=== PATIENT | female | born 1970 | race Caucasian/White ===

== ENCOUNTER 2016-10-01 09:44 | Emergency (ER) | payer OTHER ==
[2016-10-01] MEDS ORDERED: DEXAMETHASONE 10 MG/ML VIAL PO STA (10:01)
[2016-10-01] MEDS ORDERED: DEXAMETHASONE 10 MG/ML VIAL ONE (10:03)
[2016-10-01] MEDS ORDERED: CHERRY SYRUP 10 ML UDC PO ONE (10:03)
== END 2016-10-01 10:13 | disposition home or self-care (01) ==
DX: H66.003 Acute suppurative otitis media without spontaneous rupture of ear drum, bilateral (principal); H74.03 Tympanosclerosis, bilateral; J06.9 Acute upper respiratory infection, unspecified; Z79.82 Long term (current) use of aspirin
CPT/HCPCS: 99283; A9270

== ENCOUNTER 2017-03-24 15:16 | Outpatient (CLI) | payer OTHER | END 2017-03-24 15:17 | disposition home or self-care (01) | LOC: SC 15:16 | PROVIDERS: ATTEND Internal Medicine Pulmonary Disease | DX: G47.33 Obstructive sleep apnea (adult) (pediatric) (principal) | CPT/HCPCS: 99203; 99212 ==

== ENCOUNTER 2017-05-05 19:14 | Outpatient (CLI) | payer OTHER | END 2017-05-05 19:15 | disposition home or self-care (01) | LOC: SC 19:14 | PROVIDERS: ATTEND Internal Medicine Pulmonary Disease | DX: G47.33 Obstructive sleep apnea (adult) (pediatric) (principal) | CPT/HCPCS: 95811 ==

== ENCOUNTER 2017-05-22 08:51 | Outpatient (CLI) | payer OTHER | END 2017-05-22 08:52 | disposition home or self-care (01) | LOC: SC 08:51 | PROVIDERS: ATTEND Nurse Practitioner Family | DX: G47.33 Obstructive sleep apnea (adult) (pediatric) (principal); I47.1 Supraventricular tachycardia | CPT/HCPCS: 99212; 99214 ==

== ENCOUNTER 2017-06-16 17:44 | Emergency (ER) | payer OTHER ==
--- NOTE | 2017-06-16 18:22 | ED Physician Documentation ---
PD HPI ABD PAIN - Stated complaint Stated Complaint: CHEST PX - Chief complaint Chief Complaint: Cardiac - History obtained from History obtained from: Patient, Family - History of Present Illness Timing - onset: Today Timing - duration: Hours (1 1/2-2) Timing - details: Gradual onset, Still present Quality: Aching, Pain Location: Epigastric, LUQ Radiation: No: Left flank, Right flank Improved by: No: Eating, Position Worsened by: No: Eating, Position Associated symptoms: Nausea. No: Fever, Vomiting, Diarrhea, Dysuria, Chest pain , Near syncope / syncope Similar symptoms before: Has not had sx before Recently seen: Not recently seen Review of Systems Constitutional: denies: Fever, Chills Nose: denies: Rhinorrhea / runny nose, Congestion Throat: denies: Sore throat Cardiac: denies: Chest pain / pressure Respiratory: denies: Dyspnea, Cough GI: reports: Abdominal Pain. 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 HEENT: Tonsil/Adenoidectomy - Present Medications Home Medications: Ambulatory Orders Medication Instructions Recorded Confirmed Aspirin 81 mg PO DAILY 10/01/16 06/16/17 Cetirizine HCl [Zyrtec] 10 mg PO DAILY 10/01/16 06/16/17 Lisinopril 20 mg PO DAILY 10/01/16 06/16/17 Meloxicam 15 mg PO DAILY 10/01/16 06/16/17 Pantoprazole [Protonix] 40 mg PO DAILY 10/01/16 06/16/17 Sertraline HCl [Zoloft] 100 mg PO DAILY 10/01/16 06/16/17 Metformin HCl [Metformin HCl ER] 1,000 mg PO DAILY 06/16/17 06/16/17 - Allergies Allergies/Adverse Reactions: Allergies Allergy/AdvReac Type Severity Reaction Status Date / Time Penicillins Allergy Hives Verified 06/16/17 17:53 - Social History Does the pt smoke?: No Smoking Status: Never smoker Does the pt drink ETOH?: No Does the pt have substance abuse?: No - Immunizations Immunizations are current?: Yes Immunizations: TDAP >10years/unknown - POLST Patient has POLST: No PD ED PE NORMAL - Vitals Vital signs reviewed: Yes - General General: Alert and oriented X 3, No acute distress, Well developed/nourished - HEENT HEENT: Moist mucous membranes, Pharynx benign - Neck Neck: Supple, no meningeal sign, No bony TTP, No adenopathy - Cardiac Cardiac: RRR, No murmur - Respiratory Respiratory: Clear bilaterally - Abdomen Abdomen: Normal bowel sounds, Non distended, No organomegaly - Female Female : Deferred - Rectal Rectal: Deferred - Back Back: No CVA TTP - Derm Derm: Normal color, Warm and dry - Extremities Extremities: No deformity, No tenderness to palpate, Normal ROM s pain, No edema , No calf tenderness / cord - Neuro Neuro: Alert and oriented X 3, No motor deficit, Normal speech - Psych Psych: Normal mood Results - Vitals Vitals: Oxygen O2 Source Room air - Labs Labs: Laboratory Tests 06/16/17 06/16/17 06/16/17 18:20 18:20 18:20 WBC 10.8 RBC 3.96 L Hgb 11.4 L Hct 35.8 L MCV 90.5 MCH 28.7 MCHC 31.7 L RDW 14.6 Plt Count 319 MPV 7.5 L Neut # 6.0 Lymph # 3.6 H [place] # 0.9 Eos # 0.4 Baso # 0.1 Absolute Nucleated RBC 0.01 Nucleated RBC % 0.1 Sodium 137 Potassium 4.0 Chloride 101 Carbon Dioxide 27 Anion Gap 9.0 BUN 9 Creatinine 0.6 Estimated GFR (MDRD) 107 Glucose 156 H Calcium 8.7 Total Bilirubin 0.4 AST 47 H ALT 55 Alkaline Phosphatase 100 Troponin I < 0.04 B-Natriuretic Peptide Total Protein 7.4 Albumin 3.4 Globulin 4.0 Albumin/Globulin Ratio 0.9 L Lipase 28 06/16/17 18:20 WBC RBC Hgb Hct MCV MCH MCHC RDW Plt Count MPV Neut # Lymph # [place] # Eos # Baso # Absolute Nucleated RBC Nucleated RBC % Sodium Potassium Chloride Carbon Dioxide Anion Gap BUN Creatinine Estimated GFR (MDRD) Glucose Calcium Total Bilirubin AST ALT Alkaline Phosphatase Troponin I B-Natriuretic Peptide 32 Total Protein Albumin Globulin Albumin/Globulin Ratio Lipase - Rads (name of study) abd/pelvic CT Radiology: Prelim report reviewed (no acute findings. normal appendix. s/p CCY. diverticula. atelectasis in lingula. fat containing hernia. ) PD MEDICAL DECISION MAKING - ED course Complexity details: reviewed results, considered differential, d/w patient Departure - Departure Disposition: 01 Home, Self Care Clinical Impression: Abdominal pain Qualifiers: Abdominal location: left upper quadrant Qualified Code(s): R10.12 - Left upper quadrant pain Condition: Stable Record reviewed to determine appropriate education?: Yes Instructions: ED Abdominal Pain Unkn Cause Follow-Up: AKIN JAVIER [Primary Care Provider] - Comments: Your tests and EKG and CT scan appear normal here. I do not know the cause of your pain at this time. Drink lots of fluids and could use some ibuprofen or naproxen twice daily for the next few days. Add Tylenol if needed. Recheck if not improved over the next couple of days. Return sooner if other symptoms or worsening pain. The CT scan does show some diverticulosis but no signs of diverticulitis at this time. This could be early on and not evident on the scan. If increasing pain, fever, diarrhea, other symptoms then recheck her follow-up with your primary care. Discharge Date/Time: 06/16/17 21:04
[2017-06-16 18:26] LABS: BASOPHILS # (AUTO) 0.1 10^3/uL (0.0-0.1); BASOPHILS % (AUTO) 0.5 %; EOSINOPHILS # (AUTO) 0.4 10^3/uL (0.0-0.7); EOSINOPHILS % (AUTO) 3.4 %; HCT - HEMATOCRIT 35.8 % (37.0-47.0); HGB - HEMOGLOBIN 11.4 g/dL (12.0-16.0); LYMPHOCYTES # (AUTO) 3.6 10^3/uL (1.5-3.5); LYMPHOCYTES % (AUTO) 33.3 %; MEAN CORPUSCULAR HEMOGLOBIN 28.7 pg (27.0-31.0); MEAN CORPUSCULAR HGB CONC 31.7 g/dL (32.0-36.0); MEAN CORPUSCULAR VOLUME 90.5 fL (81.0-99.0); MEAN PLATELET VOLUME 7.5 fL (7.9-10.8); MONOCYTES # (AUTO) 0.9 10^3/uL (0.0-1.0); MONOCYTES % (AUTO) 7.9 %; NEUTROPHILS % (AUTO) 54.9 %; NUCLEATED RED BLOOD CELLS AUTO 0.1 /100WBC; RED BLOOD COUNT 3.96 10^6/uL (4.20-5.40); RED CELL DISTRIBUTION WIDTH 14.6 % (12.0-15.0); UNCORRECTED WHITE BLOOD COUNT 10.8 x10^3/uL; WHITE BLOOD COUNT 10.8 x10^3/uL (4.8-10.8)
--- NOTE | 2017-06-16 18:46 | XRAY Preliminary Report ---
Exam: XR CHEST 1 VIEW IMPRESSION: Mild cardiomegaly. [facility] SITE ID: [id number]
[2017-06-16 18:48] LABS: ALBUMIN/GLOBULIN RATIO 0.9 (1.0-2.2); BILIRUBIN,TOTAL 0.4 mg/dL (0.2-1.0); CALCIUM 8.7 mg/dL (8.5-10.3); CREATININE 0.6 mg/dL (0.4-1.0); TOTAL PROTEIN 7.4 g/dL (6.7-8.2)
--- NOTE | 2017-06-16 19:09 | XRAY Report ---
EXAM: CHEST RADIOGRAPHY EXAM DATE: 06/16/2017 06:11 PM. CLINICAL HISTORY: Chest pain. COMPARISON: No prior chest x-ray. CT abdomen and pelvis 01/05/2016. TECHNIQUE: 1 view. FINDINGS: Lungs/Pleura: No focal opacities evident. No pleural effusion. No pneumothorax. Mediastinum: New mild cardiomegaly. No tracheal shift. Other: None. IMPRESSION: Mild cardiomegaly. [facility] Referring Provider Line: [phone] SITE ID: [id number]
--- NOTE | 2017-06-16 20:10 | CT Preliminary Report ---
Exam: CT ABDOMEN/PELVIS W/O IMPRESSION: 1. Tiny right lower pole renal calculus measuring 2 mm. Otherwise, the kidneys appear within normal l imits. 2. Enlarged fatty liver. 3. Mild sigmoid diverticulosis without evidence for acute diverticulitis. Normal appendix. 4. Uterine fibroids. 5. Small fat-containing right posterior diaphragmatic hernia, unchanged. Minimal lingular consolidati on most likely atelectasis, new. Low mediastinal left para-aortic lymphadenopathy measuring 1.1 cm ap pears unchanged. [facility] SITE ID: [id number]
--- NOTE | 2017-06-16 20:13 | CT Report ---
EXAM: CT ABDOMEN AND PELVIS (CT KUB) EXAM DATE: 06/16/2017 07:38 PM. CLINICAL HISTORY: Left upper abdominal pain today. COMPARISONS: CT abdomen and pelvis 01/05/2016. TECHNIQUE: Routine axial helical CT imaging was performed through the abdomen and pelvis without IV c ontrast. Reconstructions: Coronal and sagittal. No oral contrast. In accordance with CT protocol optimization, one or more of the following dose reduction techniques w ere utilized for this exam: automated exposure control, adjustment of mA and/or KV based on patient s ize, or use of iterative reconstructive technique. FINDINGS: Lung Bases: Small fat-containing right posterior diaphragmatic hernia, unchanged. Minimal lingular co nsolidation most likely atelectasis, new. Low mediastinal left para-aortic lymphadenopathy measuring 1.1 cm appears unchanged. Liver: Enlarged fatty liver. Focal fatty sparing adjacent to the gallbladder. Status post cholecystectomy. No bile duct dilatation. Pancreas: Normal Spleen: Normal. Adrenals: Normal. Kidneys: Tiny right lower pole renal calculus measuring 2 mm. Otherwise, the kidneys appear within no rmal limits. No hydronephrosis. No ureteral calculi or hydroureter. No renal masses are seen. Bowel: Normal appendix. Mild sigmoid diverticulosis without evidence for acute diverticulitis. No joseline e fluid or free air. Pelvis: Uterine fibroids again noted. Bladder is decompressed. No inguinal or pelvic lymphadenopathy. No retroperitoneal lymphadenopathy. No acute bone findings. IMPRESSION: 1. Tiny right lower pole renal calculus measuring 2 mm. Otherwise, the kidneys appear within normal l imits. 2. Enlarged fatty liver. 3. Mild sigmoid diverticulosis without evidence for acute diverticulitis. Normal appendix. 4. Uterine fibroids. 5. Small fat-containing right posterior diaphragmatic hernia, unchanged. Minimal lingular consolidati on most likely atelectasis, new. Low mediastinal left para-aortic lymphadenopathy measuring 1.1 cm ap pears unchanged. [facility] Referring Provider Line: [phone] SITE ID: [id number]
[2017-06-16 20:24] VITALS: BP 135/66
== END 2017-06-16 21:04 | disposition home or self-care (01) ==
LOC: ED 17:44
DX: R10.12 Left upper quadrant pain (principal); E11.9 Type 2 diabetes mellitus without complications; I10 Essential (primary) hypertension
CPT/HCPCS: 36415; 71010; 74176; 80053; 83690; 83880; 84484; 85025; 93005; 99283; 99284

== ENCOUNTER 2017-07-08 09:20 | Outpatient (CLI) | payer OTHER | END 2017-07-08 09:21 | disposition home or self-care (01) | LOC: SC 09:20 | PROVIDERS: ATTEND Nurse Practitioner Family | DX: G47.33 Obstructive sleep apnea (adult) (pediatric) (principal) | CPT/HCPCS: 99212; 99214 ==

== ENCOUNTER 2017-08-05 15:43 | Outpatient (CLI) | payer OTHER | END 2017-08-05 15:44 | disposition home or self-care (01) | LOC: SC 15:43 | PROVIDERS: ATTEND Nurse Practitioner Family | DX: G47.33 Obstructive sleep apnea (adult) (pediatric) (principal) | CPT/HCPCS: 99212; 99214 ==

== ENCOUNTER 2017-08-27 16:13 | Outpatient (CLI) | payer OTHER | END 2017-08-27 16:14 | disposition home or self-care (01) | LOC: SC 16:13 | PROVIDERS: ATTEND Nurse Practitioner Family | DX: G47.33 Obstructive sleep apnea (adult) (pediatric) (principal) | CPT/HCPCS: 99212; 99214 ==

== ENCOUNTER 2017-11-25 08:46 | Outpatient (CLI) | payer OTHER | END 2017-11-25 08:47 | disposition home or self-care (01) | LOC: SC 08:46 | PROVIDERS: ATTEND Nurse Practitioner Family | DX: G47.33 Obstructive sleep apnea (adult) (pediatric) (principal) | CPT/HCPCS: 99212; 99214 ==

== ENCOUNTER 2020-04-10 06:18 | Day surgery (SDC) | payer OTHER ==
[2020-04-10] MEDS ORDERED: MIDAZOLAM 2 MG/2 ML VIAL IVP ONE (06:19)
[2020-04-10] MEDS ORDERED: fentaNYL 250 MCG/5 ML VIAL IVP ONE (06:19)
[2020-04-10] MEDS ORDERED: LACTATED RINGERS 1,000 ML IV ONE ×2 (07:10→08:24)
[2020-04-10 08:46] VITALS: BP 123/73
== END 2020-04-10 06:19 | disposition home or self-care (01) ==
LOC: SDS 06:18
PROVIDERS: ATTEND Internal Medicine Gastroenterology
PROC: 0DBP8ZZ Excision of Rectum, Via Natural or Artificial Opening Endoscopic (ICD-10-PCS; 2020-04-10)
PROC: 0DBN8ZZ Excision of Sigmoid Colon, Via Natural or Artificial Opening Endoscopic (ICD-10-PCS; principal; 2020-04-10 07:30)
DX: K63.5 Polyp of colon (principal); K62.1 Rectal polyp; K57.30 Diverticulosis of large intestine without perforation or abscess without bleeding; K21.9 Gastro-esophageal reflux disease without esophagitis; G47.30 Sleep apnea, unspecified; E11.9 Type 2 diabetes mellitus without complications; I10 Essential (primary) hypertension; F32.9 Major depressive disorder, single episode, unspecified; Z79.82 Long term (current) use of aspirin
CPT/HCPCS: 45380; 45385; J3010; J7120

== ENCOUNTER 2022-10-31 17:59 | Emergency (ER) | payer OTHER ==
--- NOTE | 2022-10-31 18:17 | ED Physician Documentation ---
History of Present Illness - Stated complaint Stated Complaint: CHEST TIGHTNESS - Chief complaint Chief Complaint: Cardiac - Additonal information Additional information: 52-year-old female presents to the emergency department for evaluation of palpitations and chest tightness. This has become a recurrent use event and symptoms since about a week ago. No syncope. No dyspnea. She briefly had pain in her left axilla today when her chest was tight. No nausea or vomiting. No back pain. No unilateral leg swelling. Reports that she has had palpitations for a long time and had a Holter monitor completed a number of years ago that was negative. She is obese, has type 2 diabetes as well as hypertension. She is not a smoker. Review of Systems Constitutional: denies: Fever, Chills Throat: reports: Reviewed and negative Cardiac: reports: Chest pain / pressure, Palpitations. 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 HEENT: Tonsil/Adenoidectomy - Present Medications Home Medications: Ambulatory Orders Medication Instructions Recorded Confirmed Aspirin 81 mg PO DAILY 10/01/16 06/16/17 Cetirizine HCl [Zyrtec] 10 mg PO DAILY 10/01/16 06/16/17 Lisinopril 20 mg PO DAILY 10/01/16 06/16/17 Meloxicam 15 mg PO DAILY 10/01/16 06/16/17 Pantoprazole [Protonix] 40 mg PO DAILY 10/01/16 04/10/20 Sertraline HCl [Zoloft] 100 mg PO DAILY 10/01/16 04/10/20 Metformin HCl [Metformin HCl ER] 2,000 mg PO DAILY 06/16/17 04/10/20 - Allergies Allergies/Adverse Reactions: Allergies Allergy/AdvReac Type Severity Reaction Status Date / Time pecan nut Allergy Anaphylaxis Verified 10/31/22 18:11 Penicillins Allergy Hives Verified 10/31/22 18:10 walnut Allergy Anaphylaxis Verified 10/31/22 18:11 - Social History Does the pt smoke?: No Smoking Status: Never smoker Does the pt drink ETOH?: No Does the pt have substance abuse?: No - Immunizations Immunizations are current?: Yes Immunizations: TDAP >10years/unknown - POLST Patient has POLST: No PD ED PE NORMAL - General General: Alert and oriented X 3, No acute distress. No: Well developed/nourished (Obese) - HEENT HEENT: Atraumatic, Moist mucous membranes - Neck Neck: Supple, no meningeal sign, No adenopathy - Cardiac Cardiac: RRR, No murmur, No gallop, Strong equal pulses - Respiratory Respiratory: No respiratory distress, Clear bilaterally - Abdomen Abdomen: Normal bowel sounds, Soft - Derm Derm: Normal color, Warm and dry, No rash - Extremities Extremities: No deformity, No tenderness to palpate, Normal ROM s pain - Neuro Neuro: Alert and oriented X 3 Eye Opening: Spontaneous Motor: Obeys Commands Verbal: Oriented GCS Score: 15 Results - Vitals Vitals: Vital Signs - 24 hr 10/31/22 18:00 Temperature 36.6 C Heart Rate 96 Respiratory 16 Rate Blood Pressure 169/95 H O2 Saturation 100 Oxygen O2 Source Room air - EKG (time done) 1807 EKG releavant findings:: EKG personally interpreted by author of this note. Relevant findings are: Rate: Rate (enter#) (89) Rhythm: NSR Maurice: Normal Intervals: Prolonged QT QRS: Low voltage Ischemia: Normal ST segments Compare to prior EKG: Unchanged from prior EKG Computer interpretation: Agree with computer - Labs Labs: Laboratory Tests 10/31/22 10/31/22 10/31/22 18:25 18:25 18:25 WBC 11.6 H RBC 4.09 L Hgb 10.2 L Hct 34.7 L MCV 84.8 MCH 24.9 L MCHC 29.4 L RDW 16.3 H Plt Count 397 MPV 9.3 Neut # (Auto) 7.0 H Lymph # (Auto) 3.6 H [place] # (Auto) 0.8 Eos # (Auto) 0.2 Baso # (Auto) 0.1 Absolute Nucleated RBC 0.00 Nucleated RBC % 0.0 Sodium 136 Potassium 4.1 Chloride 100 L Carbon Dioxide 27 Anion Gap 9.0 BUN 9 Creatinine 0.6 Estimated GFR (MDRD) 105 Glucose 124 H Calcium 9.2 Total Bilirubin 0.2 AST 21 ALT 21 Alkaline Phosphatase 97 Troponin I High Sens 3.6 B-Natriuretic Peptide Total Protein 7.7 Albumin 3.4 Globulin 4.3 H Albumin/Globulin Ratio 0.8 L Lipase 34 10/31/22 18:25 WBC RBC Hgb Hct MCV MCH MCHC RDW Plt Count MPV Neut # (Auto) Lymph # (Auto) [place] # (Auto) Eos # (Auto) Baso # (Auto) Absolute Nucleated RBC Nucleated RBC % Sodium Potassium Chloride Carbon Dioxide Anion Gap BUN Creatinine Estimated GFR (MDRD) Glucose Calcium Total Bilirubin AST ALT Alkaline Phosphatase Troponin I High Sens B-Natriuretic Peptide 23 Total Protein Albumin Globulin Albumin/Globulin Ratio Lipase - Rads (name of study) cxr Relevant Findings:: EMP independent interpretation of test (No acute cardiopulmonary process) PD Medical Decision Making - ED course Complexity details: reviewed results, re-evaluated patient, considered differential, d/w patient ED course: 52-year-old female who has a history of diabetes, hypertension and morbid obesity presents emergency department for evaluation of intermittent palpitations and chest tightness that she has had for much of the last week. She denies shortness of air as well as chest pain. No syncope. 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 Her screening EKG was nonischemic. Troponin was negative. We also obtained a CBC and electrolytes. Per my interpretation the patient is developing a mild anemia. Her hemoglobin today is 10.2. In contrast to a hemoglobin of over 11 a year ago. Patient reports a colonoscopy about a year ago that was negative. I have advised her to follow-up with the developing anemia with her primary care provider. May benefit from iron testing and/or reconsideration of the colonoscopy. Patient's heart score is 2 putting her at low risk for Mace. Clinically history and exam is not consistent with exertional angina. She is advised close follow- up with PCP. May benefit from outpatient echocardiogram and/or stress test. Emergent and worrisome return precautions were discussed. Departure - Departure Disposition: 01 Home, Self Care Clinical Impression: Palpitations with regular cardiac rhythm Anemia Qualifiers: Anemia type: unspecified type Qualified Code(s): D64.9 - Anemia, unspecified Condition: Stable Record reviewed to determine appropriate education?: Yes Instructions: ED Palpitations Comments: Sania benavides came to the emergency department today because you have been experiencing some palpitations at home. You have also had some vague chest tightness but no chest pain or shortness of air. Today in the emergency department you were placed on a farm equipment engine mechanic and while here your rhythm has been sinus without any PVCs or abnormal arrhythmias. We did obtain a CBC and electrolytes. You are developing a mild anemia. Your hemoglobin today is 10.2. You do take a daily aspirin. I recommend that you discuss this finding with your primary care provider. You did have colonoscopy last year. It may be worthwhile to consider a repeat colonoscopy or other testing such as iron levels. Your EKG today did not show signs of a heart attack and your labs were also negative in this regard. I would ask you to discuss this ED visit with your primary care provider. Given your age and history you should be referred for an outpatient echocardiogram and/or stress test. Return immediately to the ER if you develop any sudden severe shortness of air, have any fainting episodes, black or bloody stools or severe chest pain especially with exertion.
[2022-10-31 18:30] LABS: BASOPHILS # (AUTO) 0.1 10^3/uL (0.0-0.1); BASOPHILS % (AUTO) 0.5 %; EOSINOPHILS # (AUTO) 0.2 10^3/uL (0.0-0.7); HCT - HEMATOCRIT 34.7 % (37.0-47.0); HGB - HEMOGLOBIN 10.2 g/dL (12.0-16.0); LYMPHOCYTES # (AUTO) 3.6 10^3/uL (1.5-3.5); LYMPHOCYTES % (AUTO) 30.7 %; MEAN CORPUSCULAR HEMOGLOBIN 24.9 pg (27.0-31.0); MEAN CORPUSCULAR HGB CONC 29.4 g/dL (32.0-36.0); MEAN CORPUSCULAR VOLUME 84.8 fL (81.0-99.0); MEAN PLATELET VOLUME 9.3 fL (7.9-10.8); MONOCYTES # (AUTO) 0.8 10^3/uL (0.0-1.0); MONOCYTES % (AUTO) 6.8 %; NEUTROPHILS % (AUTO) 59.7 %; PLT - PLATELET COUNT 397 10^3/uL (130-450); RED BLOOD COUNT 4.09 10^6/uL (4.20-5.40); RED CELL DISTRIBUTION WIDTH 16.3 % (12.0-15.0); WHITE BLOOD COUNT 11.6 x10^3/uL (4.8-10.8)
[2022-10-31 18:56] LABS: ALBUMIN 3.4 g/dL (3.2-5.5); ALBUMIN/GLOBULIN RATIO 0.8 (1.0-2.2); BILIRUBIN,TOTAL 0.2 mg/dL (0.2-1.0); CALCIUM 9.2 mg/dL (8.5-10.3); CREATININE 0.6 mg/dL (0.4-1.0); POTASSIUM 4.1 mmol/L (3.5-5.0); TOTAL PROTEIN 7.7 g/dL (6.7-8.2)
[2022-10-31 19:19] VITALS: BP 133/65
--- NOTE | 2022-10-31 19:24 | XRAY Report ---
PROCEDURE: Chest 1 View X-Ray INDICATIONS: Chest Pain TECHNIQUE: One view of the chest was acquired. COMPARISON: 06/16/2017 FINDINGS: Surgical changes and devices: None. Lungs and pleura: Low lung volumes. No dense consolidation or pleural effusion. Mediastinum: Mediastinal contours appear normal. Heart size is normal. Bones and chest wall: No suspicious bony lesions. Overlying soft tissues appear unremarkable. IMPRESSION: No acute radiographic abnormality. Reviewed by: Loc Day MD on 10/31/2022 7:22 PM PST Approved by: Loc Day MD on 10/31/2022 7:22 PM PST Station ID: [id number]
== END 2022-10-31 19:20 | disposition home or self-care (01) ==
LOC: ED 17:59
DX: R00.2 Palpitations (principal); D64.9 Anemia, unspecified; Z79.82 Long term (current) use of aspirin
CPT/HCPCS: 36415; 80053; 83690; 83880; 84484; 85025; 93005; 99284

== ENCOUNTER 2023-02-02 14:34 | Emergency (ER) | payer OTHER ==
--- NOTE | 2023-02-02 15:04 | XRAY Report ---
PROCEDURE: Chest 1 View X-Ray INDICATIONS: Chest pain TECHNIQUE: One view of the chest was acquired. COMPARISON: None. FINDINGS: Surgical changes and devices: None. Lungs and pleura: No pleural effusions or pneumothorax. Lungs are clear. Mediastinum: Mediastinal contours appear normal. Heart size is normal. Bones and chest wall: No suspicious bony lesions. Overlying soft tissues appear unremarkable. IMPRESSION: No acute cardiopulmonary process. Reviewed by: Aravind Wallace MD on 02/02/2023 2:02 PM [facility] Approved by: Aravind Wallace MD on 02/02/2023 2:02 PM AKDT Station ID: [id number]
[2023-02-02 15:11] LABS: BASOPHILS # (AUTO) 0.1 10^3/uL (0.0-0.1); BASOPHILS % (AUTO) 0.5 %; EOSINOPHILS # (AUTO) 0.2 10^3/uL (0.0-0.7); EOSINOPHILS % (AUTO) 1.6 %; HCT - HEMATOCRIT 37.6 % (37.0-47.0); HGB - HEMOGLOBIN 11.5 g/dL (12.0-16.0); LYMPHOCYTES # (AUTO) 2.9 10^3/uL (1.5-3.5); LYMPHOCYTES % (AUTO) 24.2 %; MEAN CORPUSCULAR HEMOGLOBIN 27.4 pg (27.0-31.0); MEAN CORPUSCULAR HGB CONC 30.6 g/dL (32.0-36.0); MEAN CORPUSCULAR VOLUME 89.5 fL (81.0-99.0); MEAN PLATELET VOLUME 9.7 fL (7.9-10.8); MONOCYTES # (AUTO) 0.7 10^3/uL (0.0-1.0); MONOCYTES % (AUTO) 6.1 %; NEUTROPHILS % (AUTO) 67.3 %; PLT - PLATELET COUNT 326 10^3/uL (130-450); RED CELL DISTRIBUTION WIDTH 19.4 % (12.0-15.0); WHITE BLOOD COUNT 11.9 x10^3/uL (4.8-10.8)
[2023-02-02 15:34] LABS: ALBUMIN 3.6 g/dL (3.2-5.5); ALBUMIN/GLOBULIN RATIO 0.9 (1.0-2.2); BILIRUBIN,TOTAL 0.2 mg/dL (0.2-1.0); CALCIUM 9.3 mg/dL (8.5-10.3); CREATININE 0.6 mg/dL (0.4-1.0); POTASSIUM 4.1 mmol/L (3.5-5.0); TOTAL PROTEIN 7.7 g/dL (6.7-8.2)
--- OUTSIDE RECORDS SUMMARY | 2023-02-02 15:45 | EXTERNAL MEDICAL SUMMARY RPT | Continuity of Care Document ---
Author Name Unknown Address [address] [place] [address] Phone Organization [facility] Address [address] [place] [address] Phone Problems date description facility 2022-12-31 11:32 Anemia, unspecified [facility] 2022-12-31 11:47 Anemia, unspecified [facility] 2022-12-31 11:48 Anemia, unspecified [facility] 2023-01-02 14:51 Iron deficiency anemia, unspeci [facility] 2023-01-02 14:51 Anemia, unspecified [facility] Results/Labs test date author facility value unit interpretation Result panel 1 (unknown) (no date) (unknown) (unknown) (no value) (units unknown) (unknown) (unknown) (no date) (unknown) (unknown) (1) Anemia (units unknown) (unknown) (unknown) (no date) (unknown) (unknown) (VITAMIN C) (units unknown) (unknown) (unknown) (no date) (unknown) (unknown) (Vitamin D3) (units unknown) (unknown) (unknown) (no date) (unknown) (unknown) - Constitutional (un its unknown) (unknown) (unknown) (no date) (unknown) (unknown) - Consult Narrative (units unknown) (unknown) (unknown) (no date) (unknown) (unknown) - Patient Self-Reported Symptoms (units unknown) (unknown) (unknown) (no date) (unknown) (unknown) - Routine Abdo feliz Exam (units unknown) (unknown) (unknown) (no date) (unknown) (unknown) - Routine Cardiovascular Exam (units unknown) (unknown) (unknown) (no date) (unknown) (unknown) - Routine Extremities Exam (units unknown) (unknown) (unknown) (no date) (unknown) (unknown) - Routine HEENT Exam (units unknown) (unknown) (unknown) (no date) (unknown) (unknown) - Routine Neurological Exam (units unknown) (unknown) (unknown) (no date) (unknown) (unknown) - Routine Psychiatric Exam (units unknown) (unknown) (unknown) (no date) (unknown) (unknown) - Routine Respiratory Exam (units unknown) (unknown) (unknown) (no date) (unknown) (unknown) - Routine Skin Exam (units unknown) (unknown) (unknown) (no date) (unknown) (unknown) 12/30/2212/3112/31/22 (units unknown) (unknown) (unknown) (no date) (unknown) (unknown) 12/31/22 11:25 98.1 F 78 18 130/76 98 (units unknown) (unknown) (unknown) (no date) (unknown) (unknown) 12/31/22 (units unknown) (unknown) (unknown) (no date) (unknown) (unknown) 23:59 07:59 15:59 (u nits unknown) (unknown) (unknown) (no date) (unknown) (unknown) 23:59 (units unknown) (unknown) (unknown) (no date) (unknown) (unknown) [id number] (units unknown) (unknown) (unknown) (no date) (unknown) (unknown) Age/Sex: 52 / F (uni ts unknown) (unknown) (unknown) (no date) (unknown) (unknown) Allergies (units unknown) (unknown) (unknown) (no date) (unknown) (unknown) Allergy/AdvRea c Type Severity Reaction Status Date / Time (units unknown) (unknown) (unknown) (no date) (unknown) (unknown) Assessment and Plan (units unknown) (unknown) (unknown) (no date) (unknown) (unknown) CC: Chi johnson MD (units unknown) (unknown) (unknown) (no date) (unknown) (unknown) CHOLECALCIFERO L (VITAMIN D3) 2,000 iu PO Q DAY ##0 11/14/10 History (units unknown) (unknown) (unknown) (no date) (unknown) (unknown) Cardiovascular : no chest pain, no edema (units unknown) (unknown) (unknown) (no date) (unknown) (unknown) Cetirizine Hydrochloride (Zyrtec) 10 mg PO Q DAY ##0 11/14/10 History (units unknown) (unknown) (unknown) (no date) (unknown) (unknown) Constitutional : other (negative for unexpected weight change), no fever(s) (units unknown) (unknown) (unknown) (no date) (unknown) (unknown) : 9 Acct:[id number] (units unknown) (unknown) (unknown) (no date) (unknown) (unknown) Date of Servic e: 12/31/22 (units unknown) (unknown) (unknown) (no date) (unknown) (unknown) [facility] document iron deficiency with [id number] microcytic anemia. The (units unknown) (unknown) (unknown) (no date) (unknown) (unknown) ENT: Present: mucous membranes moist (units unknown) (unknown) (unknown) (no date) (unknown) (unknown) Ears, nose, mo uth, throat: no sore throat, no lump, no mass, no mouth sores (units unknown) (unknown) (unknown) (no date) (unknown) (unknown) Exam (units unknown) (unknown) (unknown) (no date) (unknown) (unknown) Eye: Present: PERRL (Conjunctivae normal) (units unknown) (unknown) (unknown) (no date) (unknown) (unknown) FERROUS GLUCON ATE (Fergon) 325 mg PO Q DAY ##0 11/14/10 History (units unknown) (unknown) (unknown) (no date) (unknown) (unknown) Gastrointestin al: other (negative for blood in stool), no abdominal pain, no (units unknown) (unknown) (unknown) (no date) (unknown) (unknown) Genitourinary: no dysuria, no hematuria (units unknown) (unknown) (unknown) (no date) (unknown) (unknown) Head: Present: normocephalic (units unknown) (unknown) (unknown) (no date) (unknown) (unknown) Hematologic/Ly mphati c: no adenopathy (units unknown) (unknown) (unknown) (no date) (unknown) (unknown) History of Pre sent Illness (units unknown) (unknown) (unknown) (no date) (unknown) (unknown) Home Medicatio ns and Allergies (units unknown) (unknown) (unknown) (no date) (unknown) (unknown) Home Medications (un its unknown) (unknown) (unknown) (no date) (unknown) (unknown) Intake and Output (u nits unknown) (unknown) (unknown) (no date) (unknown) (unknown) Integumentary: no rash, no itching (units unknown) (unknown) (unknown) (no date) (unknown) (unknown) [address] [address] (units unknown) (unknown) (unknown) (no date) (unknown) (unknown) Sania Fox is a 52 year old female (units unknown) (unknown) (unknown) (no date) (unknown) (unknown) Medication Instructions Recorded Confirmed Type (units unknown) (unknown) (unknown) (no date) (unknown) (unknown) Musculoskeleta l: no abnormal gait, no back pain, no myalgias (units unknown) (unknown) (unknown) (no date) (unknown) (unknown) Narrative: (units unknown) (unknown) (unknown) (no date) (unknown) (unknown) Neurological: no abnormal gait, no dizziness, no headache(s) (units unknown) (unknown) (unknown) (no date) (unknown) (unknown) Oncology Consult (un its unknown) (unknown) (unknown) (no date) (unknown) (unknown) Other: (units unknown) (unknown) (unknown) (no date) (unknown) (unknown) PANTOPRAZOLE S ODIUM (Protonix) 40 mg PO Q DAY ##0 11/14/10 History (units unknown) (unknown) (unknown) (no date) (unknown) (unknown) POTASSIUM CHLO RIDE (K-Dur) 20 meq PO EVERY OTHER DAY ##0 11/14/10 History (units unknown) (unknown) (unknown) (no date) (unknown) (unknown) Patient Weight (unit s unknown) (unknown) (unknown) (no date) (unknown) (unknown) Patient: Sania Zimmerman MR#: [id number] (units unknown) (unknown) (unknown) (no date) (unknown) (unknown) Penicillins Al lergy Unknown Verified 12/31/22 11:31 (units unknown) (unknown) (unknown) (no date) (unknown) (unknown) Present: Clear to auscultation bilaterally. Absent: rales, respiratory (units unknown) (unknown) (unknown) (no date) (unknown) (unknown) Present: RRR. Absent: murmur, irregular rhythm (units unknown) (unknown) (unknown) (no date) (unknown) (unknown) Present: alert , oriented X3. Absent: sensory deficit, motor deficit (units unknown) (unknown) (unknown) (no date) (unknown) (unknown) Present: dry, warm. Absent: lesions (No Bruising), jaundice (units unknown) (unknown) (unknown) (no date) (unknown) (unknown) Present: full ROM. Absent: edema, tenderness (No Swelling) (units unknown) (unknown) (unknown) (no date) (unknown) (unknown) Present: keenan l affect, normal thought process, cooperative. Absent: anxious, (units unknown) (unknown) (unknown) (no date) (unknown) (unknown) Present: soft. Absent: tenderness, distended, guarding (units unknown) (unknown) (unknown) (no date) (unknown) (unknown) Provider: Chi Norman MD (units unknown) (unknown) (unknown) (no date) (unknown) (unknown) Psychiatric: o ther (negative for decreased concentration), no anxiety (units unknown) (unknown) (unknown) (no date) (unknown) (unknown) Reason for con sult: Anemia (units unknown) (unknown) (unknown) (no date) (unknown) (unknown) Referred for evaluation of anemia. The patient report reports that she has had (units unknown) (unknown) (unknown) (no date) (unknown) (unknown) Respiratory: n o shortness of breath, no cough (units unknown) (unknown) (unknown) (no date) (unknown) (unknown) Review of Systems (u nits unknown) (unknown) (unknown) (no date) (unknown) (unknown) SR Cardiovascu lar issues: Palpitations (units unknown) (unknown) (unknown) (no date) (unknown) (unknown) SR Constitutio n: Weight loss/gain, Fatigue/Malaise (units unknown) (unknown) (unknown) (no date) (unknown) (unknown) SR Endocrine i ssues: Heat intolerance (units unknown) (unknown) (unknown) (no date) (unknown) (unknown) SR Genitourina ry issues: Change in stream (units unknown) (unknown) (unknown) (no date) (unknown) (unknown) SR Skin issues : Dry skin, Hair loss or scalp prob (units unknown) (unknown) (unknown) (no date) (unknown) (unknown) SR ears, nose, mouth, throat issues: Ears ringing, Hoarseness (units unknown) (unknown) (unknown) (no date) (unknown) (unknown) Sertraline Hydrochloride (Zoloft) 150 mg PO Q DAY ##0 11/14/10 History (units unknown) (unknown) (unknown) (no date) (unknown) (unknown) Signed By: (units unknown) (unknown) (unknown) (no date) (unknown) (unknown) Status: Acute (units unknown) (unknown) (unknown) (no date) (unknown) (unknown) Temp Pulse Res p BP Pulse Ox (units unknown) (unknown) (unknown) (no date) (unknown) (unknown) This is a very pleasant 52-year-old female referred for evaluation of microcytic (units unknown) (unknown) (unknown) (no date) (unknown) (unknown) VITAMIN C - 1, 000 mg PO Q DAY ##0 11/14/10 History (units unknown) (unknown) (unknown) (no date) (unknown) (unknown) Vital Signs (units unknown) (unknown) (unknown) (no date) (unknown) (unknown) Vital signs: (units unknown) (unknown) (unknown) (no date) (unknown) (unknown) Weight 130.1 kg (uni ts unknown) (unknown) (unknown) (no date) (unknown) (unknown) [MILK THISTLE] Q DAY ##0 11/14/10 History (units unknown) (unknown) (unknown) (no date) (unknown) (unknown) agitated (units unknown) (unknown) (unknown) (no date) (unknown) (unknown) anemia. She is a history of heavy menses that have become irregular and (units unknown) (unknown) (unknown) (no date) (unknown) (unknown) aspirin 81 mg tablet mg PO 12/31/22 History (units unknown) (unknown) (unknown) (no date) (unknown) (unknown) back in 6-8 we eks to review response to treatment. The patient is agreeable to (units unknown) (unknown) (unknown) (no date) (unknown) (unknown) denies any david rry blood blood in her stools, easy bruising or easy bleeding (units unknown) (unknown) (unknown) (no date) (unknown) (unknown) diarrhea (units unknown) (unknown) (unknown) (no date) (unknown) (unknown) distress, wheezes (u nits unknown) (unknown) (unknown) (no date) (unknown) (unknown) fatigue, palpitations and uterine bleeding worsening over the last several (units unknown) (unknown) (unknown) (no date) (unknown) (unknown) has been refer red to a surgeon for this. I suspect her microcytic anemia is (units unknown) (unknown) (unknown) (no date) (unknown) (unknown) her on 2 doses of intravenous iron Feraheme to normalize her iron stores. She (units unknown) (unknown) (unknown) (no date) (unknown) (unknown) hypertension b ut denies any history of cardiovascular disease or CVA. She (units unknown) (unknown) (unknown) (no date) (unknown) (unknown) is scheduled f or colonoscopy and has had a vaginal exam. Recent laboratories (units unknown) (unknown) (unknown) (no date) (unknown) (unknown) is unable to tolerate oral iron citing constipation. I will plan to see her (units unknown) (unknown) (unknown) (no date) (unknown) (unknown) lisinopril 10 mg tablet 10 mg PO DAILY 12/31/22 12/31/22 History (units unknown) (unknown) (unknown) (no date) (unknown) (unknown) metformin 1,00 0 mg tablet 1,000 mg PO BID 12/31/22 12/31/22 History (units unknown) (unknown) (unknown) (no date) (unknown) (unknown) months. She knutson s been trying to take oral iron however has been unable to (units unknown) (unknown) (unknown) (no date) (unknown) (unknown) nut - unspecif ied AdvReac Unknown ITCHING Verified 12/31/22 11:31 (units unknown) (unknown) (unknown) (no date) (unknown) (unknown) otherwise. (units unknown) (unknown) (unknown) (no date) (unknown) (unknown) patient chris chávez has no other complaints. She does have type 2 diabetes and (units unknown) (unknown) (unknown) (no date) (unknown) (unknown) positive no ac crow distress, negative diaphoretic (units unknown) (unknown) (unknown) (no date) (unknown) (unknown) related to iro n deficiency and her irregular menses. I will go ahead and start (units unknown) (unknown) (unknown) (no date) (unknown) (unknown) somewhat heavy in nature recently. She is planning on having a hysterectomy and (units unknown) (unknown) (unknown) (no date) (unknown) (unknown) this plan. (units unknown) (unknown) (unknown) (no date) (unknown) (unknown) tolerate this. She describes her menses as irregular and heavy at times. She (units unknown) (unknown) Result panel 2 (unknown) (no date) (unknown) (unknown) (no value) (units unknown) 52877-5 (unknown) (no date) (unknown) (unknown) (no value) (units unknown) (unknown) (unknown) (no date) (unknown) (unknown) . (units unknown) (unknown) (unknown) (no date) (unknown) (unknown) . (units unknown) 89088-8 (unknown) (no date) (unknown) (unknown) 0.3 g/dl (unknown ) (unknown) (no date) (unknown) (unknown) 0.3 g/dl 2865-4 (unknown) (no date) (unknown) (unknown) 0.8 (units unknown) (unknown) (unknown) (no date) (unknown) (unknown) 0.8 (units unknown) 1759-0 (unknown) (no date) (unknown) (unknown) 1.1 g/dl (unknown ) (unknown) (no date) (unknown) (unknown) 1.1 g/dl 2868-8 (unknown) (no date) (unknown) (unknown) 1.3 g/dl (unknown ) (unknown) (no date) (unknown) (unknown) 1.3 g/dl 2871-2 (unknown) (no date) (unknown) (unknown) 1.6 g/dl (unknown ) (unknown) (no date) (unknown) (unknown) 1.6 g/dl 2874-6 (unknown) (no date) (unknown) (unknown) 3.6 g/dl (unknown ) (unknown) (no date) (unknown) (unknown) 3.6 g/dl 2862-1 (unknown) (no date) (unknown) (unknown) 4.3 g/dl (unknown ) (unknown) (no date) (unknown) (unknown) 4.3 g/dl 11454-3 (unknown) (no date) (unknown) (unknown) 7.9 g/dl (unknown ) (unknown) (no date) (unknown) (unknown) 7.9 g/dl 2885-2 (unknown) (no date) (unknown) (unknown) Not Observed g/dl (un known) (unknown) (no date) (unknown) (unknown) Not Observed g/dl 333 58-3 Result panel 3 (unknown) (no date) (unknown) (unknown) 0.8 % (unknown ) (unknown) (no date) (unknown) (unknown) 1.8 % (unknown ) (unknown) (no date) (unknown) (unknown) 10.4 g/dl (unknown ) (unknown) (no date) (unknown) (unknown) 100 /ul (unknown ) (unknown) (no date) (unknown) (unknown) 11.0 x10 3/ul (unknow n) (unknown) (no date) (unknown) (unknown) 16.2 % (unknown ) (unknown) (no date) (unknown) (unknown) 200 /ul (unknown ) (unknown) (no date) (unknown) (unknown) 25.3 pg (unknown ) (unknown) (no date) (unknown) (unknown) 30.4 % (unknown ) (unknown) (no date) (unknown) (unknown) 32.0 % (unknown ) (unknown) (no date) (unknown) (unknown) 32.6 % (unknown ) (unknown) (no date) (unknown) (unknown) 3400 /ul (unknown ) (unknown) (no date) (unknown) (unknown) 4.13 x10 6/ul (unknow n) (unknown) (no date) (unknown) (unknown) 488 x10 3/ul (unknow n) (unknown) (no date) (unknown) (unknown) 6.9 % (unknown ) (unknown) (no date) (unknown) (unknown) 60.1 % (unknown ) (unknown) (no date) (unknown) (unknown) 6600 /ul (unknown ) (unknown) (no date) (unknown) (unknown) 79.0 fl (unknown ) (unknown) (no date) (unknown) (unknown) 800 /ul (unknown ) Result panel 4 (unknown) (no date) (unknown) (unknown) 43 ug/dl (unknown ) Result panel 5 (unknown) (no date) (unknown) (unknown) > 60 ml/min (unknown ) (unknown) (no date) (unknown) (unknown) > 60 ml/min (unknown ) (unknown) (no date) (unknown) (unknown) 0.3 mg/dl (unknown ) (unknown) (no date) (unknown) (unknown) 0.55 mg/dl (unknown ) (unknown) (no date) (unknown) (unknown) 1.1 (units unknown) (unknown) (unknown) (no date) (unknown) (unknown) 10 mg/dl (unknown ) (unknown) (no date) (unknown) (unknown) 105 mmol/l (unknown ) (unknown) (no date) (unknown) (unknown) 130 u/l (unknown ) (unknown) (no date) (unknown) (unknown) 139 mmol/l (unknown ) (unknown) (no date) (unknown) (unknown) 18.2 (units unknown) (unknown) (unknown) (no date) (unknown) (unknown) 188 u/l (unknown ) (unknown) (no date) (unknown) (unknown) 188 u/l (unknown ) (unknown) (no date) (unknown) (unknown) 27 mmol/l (unknown ) (unknown) (no date) (unknown) (unknown) 3.8 g/dl (unknown ) (unknown) (no date) (unknown) (unknown) 30 iu/l (unknown ) (unknown) (no date) (unknown) (unknown) 31 iu/l (unknown ) (unknown) (no date) (unknown) (unknown) 4.1 g/dl (unknown ) (unknown) (no date) (unknown) (unknown) 4.5 mmol/l (unknown ) (unknown) (no date) (unknown) (unknown) 7.9 g/dl (unknown ) (unknown) (no date) (unknown) (unknown) 84 mg/dl (unknown ) (unknown) (no date) (unknown) (unknown) 84 mg/dl (unknown ) (unknown) (no date) (unknown) (unknown) 9.2 mg/dl (unknown ) Result panel 6 (unknown) (no date) (unknown) (unknown) 356 mg/dl (unknown ) (unknown) (no date) (unknown) (unknown) 43 ug/dl (unknown ) (unknown) (no date) (unknown) (unknown) 468 ug/dl (unknown ) (unknown) (no date) (unknown) (unknown) 9 % (unknown ) Result panel 7 (unknown) (no date) (unknown) (unknown) > 60 ml/min (unknown ) (unknown) (no date) (unknown) (unknown) > 60 ml/min (unknown ) (unknown) (no date) (unknown) (unknown) 0.3 mg/dl (unknown ) (unknown) (no date) (unknown) (unknown) 0.55 mg/dl (unknown ) (unknown) (no date) (unknown) (unknown) 1.1 (units unknown) (unknown) (unknown) (no date) (unknown) (unknown) 10 mg/dl (unknown ) (unknown) (no date) (unknown) (unknown) 10 ng/ml (unknown ) (unknown) (no date) (unknown) (unknown) 105 mmol/l (unknown ) (unknown) (no date) (unknown) (unknown) 130 u/l (unknown ) (unknown) (no date) (unknown) (unknown) 139 mmol/l (unknown ) (unknown) (no date) (unknown) (unknown) 18.2 (units unknown) (unknown) (unknown) (no date) (unknown) (unknown) 188 u/l (unknown ) (unknown) (no date) (unknown) (unknown) 188 u/l (unknown ) (unknown) (no date) (unknown) (unknown) 27 mmol/l (unknown ) (unknown) (no date) (unknown) (unknown) 3.8 g/dl (unknown ) (unknown) (no date) (unknown) (unknown) 30 iu/l (unknown ) (unknown) (no date) (unknown) (unknown) 31 iu/l (unknown ) (unknown) (no date) (unknown) (unknown) 4.1 g/dl (unknown ) (unknown) (no date) (unknown) (unknown) 4.5 mmol/l (unknown ) (unknown) (no date) (unknown) (unknown) 7.9 g/dl (unknown ) (unknown) (no date) (unknown) (unknown) 84 mg/dl (unknown ) (unknown) (no date) (unknown) (unknown) 84 mg/dl (unknown ) (unknown) (no date) (unknown) (unknown) 9.2 mg/dl (unknown ) Result panel 8 (unknown) (no date) (unknown) (unknown) > 60 ml/min (unknown ) (unknown) (no date) (unknown) (unknown) > 60 ml/min (unknown ) (unknown) (no date) (unknown) (unknown) 0.3 mg/dl (unknown ) (unknown) (no date) (unknown) (unknown) 0.55 mg/dl (unknown ) (unknown) (no date) (unknown) (unknown) 1.1 (units unknown) (unknown) (unknown) (no date) (unknown) (unknown) 10 mg/dl (unknown ) (unknown) (no date) (unknown) (unknown) 10 ng/ml (unknown ) (unknown) (no date) (unknown) (unknown) 105 mmol/l (unknown ) (unknown) (no date) (unknown) (unknown) 11.3 ng/ml (unknown ) (unknown) (no date) (unknown) (unknown) 130 u/l (unknown ) (unknown) (no date) (unknown) (unknown) 139 mmol/l (unknown ) (unknown) (no date) (unknown) (unknown) 18.2 (units unknown) (unknown) (unknown) (no date) (unknown) (unknown) 188 u/l (unknown ) (unknown) (no date) (unknown) (unknown) 188 u/l (unknown ) (unknown) (no date) (unknown) (unknown) 27 mmol/l (unknown ) (unknown) (no date) (unknown) (unknown) 3.8 g/dl (unknown ) (unknown) (no date) (unknown) (unknown) 30 iu/l (unknown ) (unknown) (no date) (unknown) (unknown) 31 iu/l (unknown ) (unknown) (no date) (unknown) (unknown) 4.1 g/dl (unknown ) (unknown) (no date) (unknown) (unknown) 4.5 mmol/l (unknown ) (unknown) (no date) (unknown) (unknown) 7.9 g/dl (unknown ) (unknown) (no date) (unknown) (unknown) 801 pg/ml (unknown ) (unknown) (no date) (unknown) (unknown) 84 mg/dl (unknown ) (unknown) (no date) (unknown) (unknown) 84 mg/dl (unknown ) (unknown) (no date) (unknown) (unknown) 9.2 mg/dl (unknown ) Result panel 9 (unknown) (no date) (unknown) (unknown) (no value) (units unknown) (unknown) (unknown) (no date) (unknown) (unknown) (1) Anemia (units unknown) (unknown) (unknown) (no date) (unknown) (unknown) (VITAMIN C) (units unknown) (unknown) (unknown) (no date) (unknown) (unknown) (Vitamin D3) (units unknown) (unknown) (unknown) (no date) (unknown) (unknown) - Constitutional (un its unknown) (unknown) (unknown) (no date) (unknown) (unknown) - Consult Narrative (units unknown) (unknown) (unknown) (no date) (unknown) (unknown) - Patient Self-Reported Symptoms (units unknown) (unknown) (unknown) (no date) (unknown) (unknown) - Routine Abdo feliz Exam (units unknown) (unknown) (unknown) (no date) (unknown) (unknown) - Routine Cardiovascular Exam (units unknown) (unknown) (unknown) (no date) (unknown) (unknown) - Routine Extremities Exam (units unknown) (unknown) (unknown) (no date) (unknown) (unknown) - Routine HEENT Exam (units unknown) (unknown) (unknown) (no date) (unknown) (unknown) - Routine Neurological Exam (units unknown) (unknown) (unknown) (no date) (unknown) (unknown) - Routine Psychiatric Exam (units unknown) (unknown) (unknown) (no date) (unknown) (unknown) - Routine Respiratory Exam (units unknown) (unknown) (unknown) (no date) (unknown) (unknown) - Routine Skin Exam (units unknown) (unknown) (unknown) (no date) (unknown) (unknown) 12/30/2212/3112/31/22 (units unknown) (unknown) (unknown) (no date) (unknown) (unknown) 12/31/22 11:25 98.1 F 78 18 130/76 98 (units unknown) (unknown) (unknown) (no date) (unknown) (unknown) 12/31/22 1538 (units unknown) (unknown) (unknown) (no date) (unknown) (unknown) 12/31/22 (units unknown) (unknown) (unknown) (no date) (unknown) (unknown) 23:59 07:59 15:59 (u nits unknown) (unknown) (unknown) (no date) (unknown) (unknown) 23:59 (units unknown) (unknown) (unknown) (no date) (unknown) (unknown) [address] (units unknown) (unknown) (unknown) (no date) (unknown) (unknown) Age/Sex: 52 / F (uni ts unknown) (unknown) (unknown) (no date) (unknown) (unknown) Allergies (units unknown) (unknown) (unknown) (no date) (unknown) (unknown) Allergy/AdvRea c Type Severity Reaction Status Date / Time (units unknown) (unknown) (unknown) (no date) (unknown) (unknown) Assessment and Plan (units unknown) (unknown) (unknown) (no date) (unknown) (unknown) CC: Chi johnson MD (units unknown) (unknown) (unknown) (no date) (unknown) (unknown) CHOLECALCIFERO L (VITAMIN D3) 2,000 iu PO Q DAY ##0 11/14/10 History (units unknown) (unknown) (unknown) (no date) (unknown) (unknown) Cardiovascular : no chest pain, no edema (units unknown) (unknown) (unknown) (no date) (unknown) (unknown) Cetirizine Hydrochloride (Zyrtec) 10 mg PO Q DAY ##0 11/14/10 History (units unknown) (unknown) (unknown) (no date) (unknown) (unknown) Constitutional : other (negative for unexpected weight change), no fever(s) (units unknown) (unknown) (unknown) (no date) (unknown) (unknown) : 9 Acct:[id number] (units unknown) (unknown) (unknown) (no date) (unknown) (unknown) Date of Servic e: 12/31/22 (units unknown) (unknown) (unknown) (no date) (unknown) (unknown) [facility] document iron deficiency with zopr-as-gqutadad microcytic anemia. The (units unknown) (unknown) (unknown) (no date) (unknown) (unknown) ENT: Present: mucous membranes moist (units unknown) (unknown) (unknown) (no date) (unknown) (unknown) Ears, nose, mo uth, throat: no sore throat, no lump, no mass, no mouth sores (units unknown) (unknown) (unknown) (no date) (unknown) (unknown) Exam (units unknown) (unknown) (unknown) (no date) (unknown) (unknown) Eye: Present: PERRL (Conjunctivae normal) (units unknown) (unknown) (unknown) (no date) (unknown) (unknown) FERROUS GLUCON ATE (Fergon) 325 mg PO Q DAY ##0 11/14/10 History (units unknown) (unknown) (unknown) (no date) (unknown) (unknown) Gastrointestin al: other (negative for blood in stool), no abdominal pain, no (units unknown) (unknown) (unknown) (no date) (unknown) (unknown) Genitourinary: no dysuria, no hematuria (units unknown) (unknown) (unknown) (no date) (unknown) (unknown) Head: Present: normocephalic (units unknown) (unknown) (unknown) (no date) (unknown) (unknown) Hematologic/Ly mphati c: no adenopathy (units unknown) (unknown) (unknown) (no date) (unknown) (unknown) History of Pre sent Illness (units unknown) (unknown) (unknown) (no date) (unknown) (unknown) Home Medicatio ns and Allergies (units unknown) (unknown) (unknown) (no date) (unknown) (unknown) Home Medications (un its unknown) (unknown) (unknown) (no date) (unknown) (unknown) Intake and Output (u nits unknown) (unknown) (unknown) (no date) (unknown) (unknown) Integumentary: no rash, no itching (units unknown) (unknown) (unknown) (no date) (unknown) (unknown) [address] [address] (units unknown) (unknown) (unknown) (no date) (unknown) (unknown) Sania Fox is a 52 year old female (units unknown) (unknown) (unknown) (no date) (unknown) (unknown) Medication Instructions Recorded Confirmed Type (units unknown) (unknown) (unknown) (no date) (unknown) (unknown) Musculoskeleta l: no abnormal gait, no back pain, no myalgias (units unknown) (unknown) (unknown) (no date) (unknown) (unknown) Narrative: (units unknown) (unknown) (unknown) (no date) (unknown) (unknown) Neurological: no abnormal gait, no dizziness, no headache(s) (units unknown) (unknown) (unknown) (no date) (unknown) (unknown) Oncology Consult (un its unknown) (unknown) (unknown) (no date) (unknown) (unknown) Other: (units unknown) (unknown) (unknown) (no date) (unknown) (unknown) PANTOPRAZOLE S ODIUM (Protonix) 40 mg PO Q DAY ##0 11/14/10 History (units unknown) (unknown) (unknown) (no date) (unknown) (unknown) POTASSIUM CHLO RIDE (K-Dur) 20 meq PO EVERY OTHER DAY ##0 11/14/10 History (units unknown) (unknown) (unknown) (no date) (unknown) (unknown) Patient Weight (unit s unknown) (unknown) (unknown) (no date) (unknown) (unknown) Patient: Sania Zimmerman MR#: [id number] (units unknown) (unknown) (unknown) (no date) (unknown) (unknown) Penicillins Al lergy Unknown Verified 12/31/22 11:31 (units unknown) (unknown) (unknown) (no date) (unknown) (unknown) Present: Clear to auscultation bilaterally. Absent: rales, respiratory (units unknown) (unknown) (unknown) (no date) (unknown) (unknown) Present: RRR. Absent: murmur, irregular rhythm (units unknown) (unknown) (unknown) (no date) (unknown) (unknown) Present: alert , oriented X3. Absent: sensory deficit, motor deficit (units unknown) (unknown) (unknown) (no date) (unknown) (unknown) Present: dry, warm. Absent: lesions (No Bruising), jaundice (units unknown) (unknown) (unknown) (no date) (unknown) (unknown) Present: full ROM. Absent: edema, tenderness (No Swelling) (units unknown) (unknown) (unknown) (no date) (unknown) (unknown) Present: keenan l affect, normal thought process, cooperative. Absent: anxious, (units unknown) (unknown) (unknown) (no date) (unknown) (unknown) Present: soft. Absent: tenderness, distended, guarding (units unknown) (unknown) (unknown) (no date) (unknown) (unknown) Provider: Chi Norman MD (units unknown) (unknown) (unknown) (no date) (unknown) (unknown) Psychiatric: o ther (negative for decreased concentration), no anxiety (units unknown) (unknown) (unknown) (no date) (unknown) (unknown) Reason for con sult: Anemia (units unknown) (unknown) (unknown) (no date) (unknown) (unknown) Referred for evaluation of anemia. The patient report reports that she has had (units unknown) (unknown) (unknown) (no date) (unknown) (unknown) Respiratory: n o shortness of breath, no cough (units unknown) (unknown) (unknown) (no date) (unknown) (unknown) Review of Systems (u nits unknown) (unknown) (unknown) (no date) (unknown) (unknown) SR Cardiovascu lar issues: Palpitations (units unknown) (unknown) (unknown) (no date) (unknown) (unknown) SR Constitutio n: Weight loss/gain, Fatigue/Malaise (units unknown) (unknown) (unknown) (no date) (unknown) (unknown) SR Endocrine i ssues: Heat intolerance (units unknown) (unknown) (unknown) (no date) (unknown) (unknown) SR Genitourina ry issues: Change in stream (units unknown) (unknown) (unknown) (no date) (unknown) (unknown) SR Skin issues : Dry skin, Hair loss or scalp prob (units unknown) (unknown) (unknown) (no date) (unknown) (unknown) SR ears, nose, mouth, throat issues: Ears ringing, Hoarseness (units unknown) (unknown) (unknown) (no date) (unknown) (unknown) Sertraline Hydrochloride (Zoloft) 150 mg PO Q DAY ##0 11/14/10 History (units unknown) (unknown) (unknown) (no date) (unknown) (unknown) Signed By:<Electronically signed by Chi Norman MD> (units unknown) (unknown) (unknown) (no date) (unknown) (unknown) Status: Acute (units unknown) (unknown) (unknown) (no date) (unknown) (unknown) Temp Pulse Res p BP Pulse Ox (units unknown) (unknown) (unknown) (no date) (unknown) (unknown) This is a very pleasant 52-year-old female referred for evaluation of microcytic (units unknown) (unknown) (unknown) (no date) (unknown) (unknown) VITAMIN C - 1, 000 mg PO Q DAY ##0 11/14/10 History (units unknown) (unknown) (unknown) (no date) (unknown) (unknown) Vital Signs (units unknown) (unknown) (unknown) (no date) (unknown) (unknown) Vital signs: (units unknown) (unknown) (unknown) (no date) (unknown) (unknown) Weight 130.1 kg (uni ts unknown) (unknown) (unknown) (no date) (unknown) (unknown) [MILK THISTLE] Q DAY ##0 11/14/10 History (units unknown) (unknown) (unknown) (no date) (unknown) (unknown) agitated (units unknown) (unknown) (unknown) (no date) (unknown) (unknown) anemia. She is a history of heavy menses that have become irregular and (units unknown) (unknown) (unknown) (no date) (unknown) (unknown) aspirin 81 mg tablet mg PO 12/31/22 History (units unknown) (unknown) (unknown) (no date) (unknown) (unknown) back in 6-8 we eks to review response to treatment. The patient is agreeable to (units unknown) (unknown) (unknown) (no date) (unknown) (unknown) denies any david rry blood blood in her stools, easy bruising or easy bleeding (units unknown) (unknown) (unknown) (no date) (unknown) (unknown) diarrhea (units unknown) (unknown) (unknown) (no date) (unknown) (unknown) distress, wheezes (u nits unknown) (unknown) (unknown) (no date) (unknown) (unknown) fatigue, palpitations and uterine bleeding worsening over the last several (units unknown) (unknown) (unknown) (no date) (unknown) (unknown) has been refer red to a surgeon for this. I suspect her microcytic anemia is (units unknown) (unknown) (unknown) (no date) (unknown) (unknown) her on 2 doses of intravenous iron Feraheme to normalize her iron stores. She (units unknown) (unknown) (unknown) (no date) (unknown) (unknown) hypertension b ut denies any history of cardiovascular disease or CVA. She (units unknown) (unknown) (unknown) (no date) (unknown) (unknown) is scheduled f or colonoscopy and has had a vaginal exam. Recent laboratories (units unknown) (unknown) (unknown) (no date) (unknown) (unknown) is unable to tolerate oral iron citing constipation. I will plan to see her (units unknown) (unknown) (unknown) (no date) (unknown) (unknown) lisinopril 10 mg tablet 10 mg PO DAILY 12/31/22 12/31/22 History (units unknown) (unknown) (unknown) (no date) (unknown) (unknown) metformin 1,00 0 mg tablet 1,000 mg PO BID 12/31/22 12/31/22 History (units unknown) (unknown) (unknown) (no date) (unknown) (unknown) months. She knutson s been trying to take oral iron however has been unable to (units unknown) (unknown) (unknown) (no date) (unknown) (unknown) nut - unspecif ied AdvReac Unknown ITCHING Verified 12/31/22 11:31 (units unknown) (unknown) (unknown) (no date) (unknown) (unknown) otherwise. (units unknown) (unknown) (unknown) (no date) (unknown) (unknown) patient othergerald chávez has no other complaints. She does have type 2 diabetes and (units unknown) (unknown) (unknown) (no date) (unknown) (unknown) positive no ac crow distress, negative diaphoretic (units unknown) (unknown) (unknown) (no date) (unknown) (unknown) related to iro n deficiency and her irregular menses. I will go ahead and start (units unknown) (unknown) (unknown) (no date) (unknown) (unknown) somewhat heavy in nature recently. She is planning on having a hysterectomy and (units unknown) (unknown) (unknown) (no date) (unknown) (unknown) this plan. (units unknown) (unknown) (unknown) (no date) (unknown) (unknown) tolerate this. She describes her menses as irregular and heavy at times. She (units unknown) (unknown) Result panel 10 (unknown) (no date) (unknown) (unknown) 0.3 g/dl (unknown ) (unknown) (no date) (unknown) (unknown) 0.8 (units unknown) (unknown) (unknown) (no date) (unknown) (unknown) 1.1 g/dl (unknown ) (unknown) (no date) (unknown) (unknown) 1.3 g/dl (unknown ) (unknown) (no date) (unknown) (unknown) 1.6 g/dl (unknown ) (unknown) (no date) (unknown) (unknown) 3.6 g/dl (unknown ) (unknown) (no date) (unknown) (unknown) 4.3 g/dl (unknown ) (unknown) (no date) (unknown) (unknown) 7.9 g/dl (unknown ) (unknown) (no date) (unknown) (unknown) Comment (units unknown) (unknown) (unknown) (no date) (unknown) (unknown) Comment (units unknown) (unknown) (unknown) (no date) (unknown) (unknown) Not Observed g/dl (un known)
--- NOTE | 2023-02-02 16:27 | ED Physician Documentation ---
PD HPI CHEST PAIN - Stated complaint Stated Complaint: CHEST PX - Chief complaint Chief Complaint: Cardiac - History obtained from History obtained from: Patient, Family - History of Present Illness Timing - onset: How many days ago (5) Timing - onset during: Rest Timing - duration: Days (5) Timing - details: Abrupt onset, Still present Quality: Pressure, Tightness Location: Substernal Radiation: No: Jaw, Neck, Back, Abdominal, Left upper extremity, Right upper extremity Improved by: Other (pressure against the chest) Worsened by: Inspiration Associated symptoms: No: Shortness of air, Diaphoresis, Nausea, Vomiting, Feeling faint / dizzy, General Weakness, Palpitations, Cough Similar symptoms before: No diagnosis Recently seen: Clinic, Emergency Dept - Additional information Additional information: 52-year-old Sania Fox is a sedentary female with a BMI of 48.9 who has recent ly been into the emergency department for palpitations and she has been in to see the assistant federal public defender and currently has an event patch on. She indicates that she is not feeling the palpitations as much as she normally has been but she has developed some pressure in her substernal area and this seems to be better if she puts her hand over it and puts a slight amount of pressure over it. She has had some worsening of this with a deep breath. She indicates that up 1 to 3 days before this started up that she had to walk across the parking lot at [facility] and may be walked about 100 yards. She indicates that she was short of breath following that and she does not usually walk that far. Review of Systems Constitutional: denies: Fever Ears: denies: Ear pain Nose: denies: Rhinorrhea / runny nose, Congestion Throat: denies: Sore throat Cardiac: reports: Chest pain / pressure, Palpitations. denies: Pedal edema, Calf pain Respiratory: denies: Dyspnea, Cough GI: denies: Abdominal Pain, Nausea, Vomiting, Constipation, Diarrhea : denies: Dysuria Skin: denies: Rash Musculoskeletal: denies: Neck pain, Back pain, Extremity pain PD PAST MEDICAL HISTORY - Past Medical History Cardiovascular: Hypertension Endocrine/Autoimmune: Type 2 diabetes GI: GERD Psych: Depression Musculoskeletal: Chronic back pain - Past Surgical History General: Cholecystectomy, EGD /[employer]ACHINE [employer]PER[employer]: Endometrial ablation HEENT: Tonsil/Adenoidectomy - Present Medications Home Medications: Ambulatory Orders Medication Instructions Recorded Confirmed Aspirin 81 mg PO DAILY 10/01/16 06/16/17 Cetirizine HCl [Zyrtec] 10 mg PO DAILY 10/01/16 06/16/17 Lisinopril 20 mg PO DAILY 10/01/16 06/16/17 Meloxicam 15 mg PO DAILY 10/01/16 06/16/17 Pantoprazole [Protonix] 40 mg PO DAILY 10/01/16 04/10/20 Sertraline HCl [Zoloft] 100 mg PO DAILY 10/01/16 04/10/20 Metformin HCl [Metformin HCl ER] 2,000 mg PO DAILY 06/16/17 04/10/20 - Allergies Allergies/Adverse Reactions: Allergies Allergy/AdvReac Type Severity Reaction Status Date / Time pecan nut Allergy Anaphylaxis Verified 02/02/23 14:43 Penicillins Allergy Hives Verified 02/02/23 14:43 walnut Allergy Anaphylaxis Verified 02/02/23 14:43 - Social History Does the pt smoke?: No Smoking Status: Never smoker Does the pt drink ETOH?: No Does the pt have substance abuse?: No - Immunizations Immunizations are current?: Yes Immunizations: TDAP >10years/unknown - POLST Patient has POLST: No PD ED PE NORMAL - Vitals Vital signs reviewed: Yes (tachy and hypertensive ) - General General: Alert and oriented X 3, No acute distress, Well developed/nourished - HEENT HEENT: Atraumatic, PERRL, EOMI - Neck Neck: Supple, no meningeal sign, No bony TTP - Cardiac Cardiac: RRR, No murmur - Respiratory Respiratory: No respiratory distress, Clear bilaterally, Other (no chest wall tenderness) - Abdomen Abdomen: Normal bowel sounds, Soft, Non tender - Back Back: No CVA TTP, No spinal TTP - Derm Derm: Normal color, Warm and dry, No rash - Extremities Extremities: No deformity, No edema - Neuro Neuro: Alert and oriented X 3, cook specialty 2-12 intact, No motor deficit, No sensory deficit, Normal speech Eye Opening: Spontaneous Motor: Obeys Commands Verbal: Oriented GCS Score: 15 - Psych Psych: Normal mood, Normal affect Results - Vitals Vitals: Vital Signs - 24 hr 02/02/23 02/02/23 14:39 16:30 Temperature 36.2 C L Heart Rate 101 H 88 Respiratory 16 16 Rate Blood Pressure 157/90 H 125/68 O2 Saturation 97 100 Oxygen O2 Source Room air - EKG (time done) 1447 EKG releavant findings:: EKG personally interpreted by author of this note. Relevant findings are: Rate: Rate (enter#) (96) Intervals: RBBB (incomplete) QRS: Low voltage Compare to prior EKG: Unchanged from prior EKG (SPT 10-31-22 no changes) Computer interpretation: Agree with computer - Labs Labs: Laboratory Tests 02/02/23 02/02/23 02/02/23 15:01 15:01 15:01 WBC 11.9 H RBC 4.20 Hgb 11.5 L Hct 37.6 MCV 89.5 MCH 27.4 MCHC 30.6 L RDW 19.4 H Plt Count 326 MPV 9.7 Neut # (Auto) 8.0 H Lymph # (Auto) 2.9 [place] # (Auto) 0.7 Eos # (Auto) 0.2 Baso # (Auto) 0.1 Absolute Nucleated RBC 0.00 Nucleated RBC % 0.0 Sodium 142 Potassium 4.1 Chloride 106 Carbon Dioxide 29 Anion Gap 7.0 BUN 13 Creatinine 0.6 Estimated GFR (MDRD) 105 Glucose 138 H Calcium 9.3 Total Bilirubin 0.2 AST 25 ALT 32 Alkaline Phosphatase 97 Troponin I High Sens < 2.3 L Total Protein 7.7 Albumin 3.6 Globulin 4.1 Albumin/Globulin Ratio 0.9 L Lipase 58 H - Rads (name of study) chest Relevant Findings:: Prelim report reviewed (Impression: No acute cardiopulmonary process.), EMP independent interpretation of test PD Medical Decision Making - ED course Complexity details: considered differential, d/w patient, d/w family Reviewed Lab Results: We reviewed a complete blood count showing a mildly elevated white blood cell count 11.9 normal hemoglobin hematocrit and platelets chemistry is with normal- appearing electrolytes normal kidney and liver function high-sensitivity troponin is negative at less than 2.3. A chest x-ray is without evidence of infiltrate effusion or hemo or pneumothorax. ED course: 52-year-old female with a history of palpitations has a sedentary lifestyle and she is wanting to prepare for a hysterectomy. She is wanting to start walking for exercise and she has found that she does not tolerate a 100 yard walk. She has developed some chest pain associated with this that is chest wall pain. I have encouraged the patient to do regular exercise he starting with 30 seconds/day and increasing daily. I suspect the patient's chest pain is chest wall pain and I discussed this with the patient and she and her are comfortable with this explanation. She does have follow-up with her assistant federal public defender on the of this month. While the patient was in our department here she had no evidence of ectopy. I suspect even her palpitations may have been chest wall muscle spasm. Departure - Departure Disposition: 01 Home, Self Care Clinical Impression: Anterior chest wall pain Condition: Stable Instructions: ED Strain Chest Wall Follow-Up: NICANOR LOO MD [Primary Care Provider] - Comments: Sania, today it looks like there is no evidence of involvement of your heart having to do this pain you are experiencing. I suspect this is chest wall strain from the walking you did prior to the onset of the pain. My recommendation is to attempt shorter walks and increase the length of time that you are walking daily. Start with 30 seconds. The expectation is resolution of your symptoms over the next 2 to 5 days. follow up with your assistant federal public defender as planned.
[2023-02-02 16:37] VITALS: BP 125/68
== END 2023-02-02 16:45 | disposition home or self-care (01) ==
LOC: ED 14:34
DX: R07.89 Other chest pain (principal); E11.9 Type 2 diabetes mellitus without complications; Z79.84 Long term (current) use of oral hypoglycemic drugs; I10 Essential (primary) hypertension; Z68.42 Body mass index [BMI] 45.0-49.9, adult
CPT/HCPCS: 36415; 80053; 83690; 84484; 85025; 93005; 99283; 99284

== ENCOUNTER 2023-03-19 08:17 | Outpatient (CLI) | payer OTHER ==
--- NOTE | 2023-03-19 09:04 | Sleep Patient Instructions ---
Sleep Center Visit Summary - Patient Visit Information Reason for Visit: Initial consult - Patient Instructions Instructions Attached: Sleep Study Home Monitor Additional Instructions: You will be completing a sleep study, either an in-lab polysomnography (PSG) or home sleep study (HST). You will follow-up in the sleep care office after the sleep study is completed to hear the results and talk about therapy, if needed. You will be called by our office staff to schedule this appointment, but you may contact us with any questions. - Clinic Information Contact: [facility] [address] [place] [address] [email or web address] T: [phone]
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
[2023-03-19 09:13] VITALS: BP 120/70
== END 2023-03-19 08:18 | disposition home or self-care (01) ==
LOC: SC 08:17
PROVIDERS: ATTEND Nurse Practitioner Family
DX: G47.33 Obstructive sleep apnea (adult) (pediatric) (principal); E66.01 Morbid (severe) obesity due to excess calories; Z68.43 Body mass index [BMI] 50.0-59.9, adult
CPT/HCPCS: 99203; 99212

== ENCOUNTER 2023-05-30 08:26 | Outpatient (CLI) | payer OTHER | END 2023-05-30 08:27 | disposition home or self-care (01) | LOC: SC 08:26 | PROVIDERS: ATTEND Nurse Practitioner Family | DX: R09.02 Hypoxemia (principal); F32.A Depression, unspecified; E11.9 Type 2 diabetes mellitus without complications; I10 Essential (primary) hypertension | CPT/HCPCS: 95806 ==

== ENCOUNTER 2023-06-19 10:58 | Outpatient (CLI) | payer OTHER ==
--- NOTE | 2023-06-19 10:37 | SLEEP CARE CONSULTATION ---
Information from patient questionnaire entered by Guadalupe Madrid. I have reviewed and concur with the information entered by Guadalupe Madrid. This document represents the service I personally performed and the decisions made by , Mini Parry ARNP. History of Present Illness Service Date and Time: 06/19/2023 1020 Initial [place] Sleepiness Scale score: 14 (03/18/23) Current [place] Sleepiness Scale score: 14 Additional HPI information: MARY DASILVA returns via telehealth visit for follow up and results of the recently performed home sleep study. The patient was informed of the following findings: No significant sleep disordered breathing with an average AHI of 4 and rey oxygen saturation of 86%. I explained the pathophysiology behind obstructive sleep apnea. Patient does not have sleep apnea and was advised how weight gain could increase the risk of developing sleep apnea in the future. I strongly encouraged the patient to lose weight. Patient has mild snoring. Snoring can be reduced by weight loss. Weight loss is best achieved with diet consult. Patient instructed to contact PCP for referral. Snoring can also be treated with an oral appliance from a dentist. Advised to check insurance coverage. In addition, an ENT evaluation can be do to see if other treatment is indicated. Patient does not drink alcohol. Patient was cautioned about risks of drowsy driving until sleepiness symptoms resolve. Patient denies drowsy driving. Sleep Study - Results Type of Sleep Study: Home sleep study (COMPLETED 05/30/23) Prior sleep studies: Yes Year and Where: [facility] LOCATION 2016 Polysomnography/Home Sleep Study results: Physician Impression: The quality of the study is good. The length of the study is adequate (> 240 minutes). Please also see the tabulated and graphic data. 1. No significant sleep disordered breathing, with an AHI of 4.0/hr and rey SaO2 of 86%. During the study, the patient had 6 apneas (6 obstructive, 0 central, 0 mixed) and 34 hypopneas. The longest episode lasted 88.0 seconds. The patient only slept supine during this study (supine AHI was 4.0 and non-supine, 0.00). 2. Hypoxemia (ICD-10 R09.02), mild, with the lowest oxygen saturation of 86 % and 3.4 minutes with SaO2 under 90%. Baseline oxygen saturation was normal (Average oxygen saturation was 93%). Allergies and Home Medications Known drug allergies: Yes (as listed) Drug allergies reviewed: Yes Home medication list reviewed: Yes (no changes) Allergy and home medication list: Allergies cigarette smoke Allergy (Verified 06/18/23 10:19) pecan nut Allergy (Verified 06/18/23 10:19) Anaphylaxis Penicillins Allergy (Verified 06/18/23 10:19) Hives walnut Allergy (Verified 06/18/23 10:19) Anaphylaxis Review of Systems Review of systems same as previous: Yes (no changes) Physical Exam Vital signs obtained and entered by: MINI LANE Height: 5 ft 4 in Weight: 288 lb (per pt) Body Mass Index: 49.4 BMI Classification: Morbidly Obese Impression and Plan 1. Snoring but no significant sleep disordered breathing. Patient had prior diagnosis severe sleep apnea. She returned after a home study where she did sleep in her recliner as she normally does because of issues with her shoulder in numbness in her arm, pain. Since she normally sleeps in the recliner this sleep study did show no significant sleep disordered breathing. However, I suspect if she slept flat on her back in the bed that she would have a lot more apneas. We discussed whether she could do another study and she felt that she could not sleep for more than an hour because of her shoulder and is currently sleeping in her recliner which is controlling the sleep apnea. So, we could not qualify her to order a new CPAP machine. She voiced understanding. Patient advised that often weight loss will reduce snoring as well as apnea risk. An oral appliance can also be used for snoring. This would require a dental consultation. Patient cautioned not to use other online appliances as can cause bite issues. Patient is advised to check if insurance will cover. An ENT consult can also be helpful to determine if any other treatment is an option. 2. Hypoxemia, mild, with a rey oxygen saturation of 86% and 3.4 minutes spent under 90%. The baseline oxygen saturation was normal with an average oxygen saturation of 93%. 3. Obesity, unspecified. Currently patients BMI is 49.4. Obesity increases the risk of apnea, CPAP pressure requirements and overall health risks especially cardiovascular and diabetes. Thus patient is advised to lose weight. * Avoid supine sleep in bed, continue sleeping in recliner * Attempt to lose weight * Return as needed for follow up. Counseling Topics: Weight loss health impact Visit Type: Telehealth Phone Video Type: Doximity Patient Location: Work Location of Provider: Office Patient agrees and consents to this telehealth visit type: Yes Patient agrees to have their insurance billed: Yes Time Spent with Patient (minutes): 14 Provider Statement: I spent 100% of the Telehealth Phone Call with the patient with greater than 50% spent counseling the patient and coordination of care.
== END 2023-06-19 10:59 | disposition home or self-care (01) ==
LOC: SC 10:58
PROVIDERS: ATTEND Nurse Practitioner Family
DX: R06.83 Snoring (principal); R09.02 Hypoxemia; E66.01 Morbid (severe) obesity due to excess calories; Z68.42 Body mass index [BMI] 45.0-49.9, adult